=== PATIENT | male | born 1960 | race Caucasian/White ===

== ENCOUNTER 2021-08-30 22:37 | Inpatient (IN) | payer MEDICAID, OTHER ==
[~2021-08-30] VITALS: Ht 180.3 cm; Wt 92.3 kg
[2021-08-30] MEDS ORDERED: IOHEXOL 350 MG/ML 100 ML VIAL ONE (22:53)
[2021-08-30] MEDS ORDERED: SODIUM CHLORIDE 0.9% 100 ML ONE (22:53)
[2021-08-30 23:14] LABS: BASOPHILS % (AUTO) 0.2 % (0.0-2.0); EOSINOPHILS % (AUTO) 0 % (1.0-6.0); HEMATOCRIT 45.5 % (41-53); HEMOGLOBIN 16.2 g/dL (13.5-17.5); LYMPHOCYTES # (AUTO) 0.7 K/uL (1.0-4.8); MEAN CORPUSCULAR HEMOGLOBIN 32.6 pg (26.0-34.0); MEAN CORPUSCULAR HGB CONC 35.6 G/dL (31.0-37.0); MEAN CORPUSCULAR VOLUME 91 fL (80-100); MONOCYTES # (AUTO) 0.9 K/uL (0.1-1.0); MONOCYTES % (AUTO) 5.2 % (2.0-9.0); NEUTROPHILS # (AUTO) 15.3 K/uL (1.8-7.7); PLATELET COUNT (AUTO) 227 K/uL (150-450); RED BLOOD CELL COUNT(AUTO) 4.98 MIL/uL (4.50-5.90); RED CELL DISTRIBUTION WIDTH 12.9 % (11.5-14.5)
[2021-08-30 23:15] LABS: NEUTROPHILS % (AUTO) 90.6 % (40.0-70.0)
[2021-08-30 23:24] LABS: CALCIUM, TOTAL 8.9 mg/dL (8.8-10.5); CREATININE 1.52 mg/dL (0.60-1.30); POTASSIUM 3.6 mmol/L (3.5-5.1)
[2021-08-30 23:25] LABS: INR 1.1 (0.9-1.1); PROTHROMBIN TIME 11.3 SEC (9.4-11.6)
[2021-08-30 23:30] LABS: ALBUMIN 4.1 g/dL (3.4-5.0); BILIRUBIN,TOTAL 1.1 mg/dL (0.1-1.0); TOTAL PROTEIN, SERUM 7.8 g/dL (6.4-8.2)
[2021-08-30] MEDS: NiCARDipine HCL 25 MG in SODIUM CHLORIDE 0.9% 240 ML IV PRN (23:30)
[2021-08-30] MEDS ORDERED: MORPHINE SULFATE 4 MG/ML SYRINGE IVP ONE (23:30)
[2021-08-30 23:56] LABS: COVID AG,FIA SOURCE NASOPHARYNGEAL
[2021-08-31] MEDS ORDERED: ONDANSETRON HCL 4 MG/2 ML VIAL IVP ONE
[2021-08-31 00:01] LABS: APPEARANCE,URINE CLEAR (CLEAR); BILIRUBIN,URINE NEGATIVE (NEGATIVE); GLUCOSE, URINE (UA) NEGATIVE (NEGATIVE); KETONES,URINE TRACE mg/dL (NEGATIVE); LEUKOCYTE ESTERASE ,URINE NEGATIVE (NEGATIVE); NITRATE,URINE NEGATIVE (NEGATIVE); OCCULT BLOOD,URINE MODERATE (NEGATIVE); PROTEIN,URINE POS 1+ (NEGATIVE); UROBILINOGEN,URINE 0.2 mg/dL (<=1.0)
[2021-08-31 00:04] LABS: BACTERIA,URINE Rare /HPF (None Seen); WBC,URINE 0-2 /HPF (0-5)
[2021-08-31 00:05] LABS: AMPHET/METH SCREEN,URINE POSITIVE (NEGATIVE); BARBITURATE SCREEN, URINE NEGATIVE (NEGATIVE); BENZODIAZEPINES SCREEN,URINE NEGATIVE (NEGATIVE); CANNABINOID SCREEN,URINE NEGATIVE (NEGATIVE); COCAINE SCREEN,URINE NEGATIVE (NEGATIVE); METHADONE SCREEN, URINE NEGATIVE (NEGATIVE); OPIATE SCREEN,URINE NEGATIVE (NEGATIVE)
[2021-08-31 00:07] LABS: PHENCYCLIDINE SCREEN,URINE NEGATIVE (NEGATIVE)
[2021-08-31] MEDS ORDERED: 0.9% SODIUM CHLORIDE 10 ML SYRINGE IVP PRN (00:15)
[2021-08-31] MEDS ORDERED: ONDANSETRON HCL 4 MG/2 ML VIAL IVP PRN (00:15)
[2021-08-31] MEDS ORDERED: ACETAMINOPHEN 325 MG TABLET PO PRN (00:15)
[2021-08-31] MEDS ORDERED: FAMOTIDINE 10 MG/ML 2 ML VIAL IVP ONE (00:45)
[2021-08-31] MEDS ORDERED: METOCLOPRAMIDE HCL 5 MG/ML 2 ML VIAL IVP ONE (00:45)
[2021-08-31] MEDS: NiCARDipine HCL 25 MG in SODIUM CHLORIDE 0.9% 240 ML IV PRN (05:43)
[2021-08-31] MEDS ORDERED: BISACODYL 10 MG RECTAL RECTAL SUPPOSITORY PR PRN (06:00)
[2021-08-31] MEDS ORDERED: IPRATROPIUM BROMIDE 0.5 MG/2.5 ML NEB SOLUTION NEB PRN (06:00)
[2021-08-31] MEDS ORDERED: ALBUTEROL SULFATE 2.5 MG/0.5 ML NEB SOLUTION NEB PRN (06:00)
[2021-08-31] MEDS: DOCUSATE SODIUM 100 MG CAPSULE PO SCH ×2 (09:00→21:00)
[2021-08-31] MEDS: PANTOPRAZOLE SODIUM 40 MG/VIAL IVP SCH (10:08)
[2021-08-31] MEDS ORDERED: LORazepam 2 MG/ML VIAL ONE (10:55)
[2021-08-31] MEDS ORDERED: LORazepam 2 MG/ML VIAL IVP ONE (11:00)
[2021-08-31] MEDS ORDERED: HALOPERIDOL LACTATE 5 MG/ML VIAL IVP ONE (11:30)
[2021-08-31 21:06] LABS: BASOPHILS % (AUTO) 0.9 % (0.0-2.0); EOSINOPHILS % (AUTO) 0.5 % (1.0-6.0); HEMATOCRIT 44.2 % (41-53); HEMOGLOBIN 15.6 g/dL (13.5-17.5); LYMPHOCYTES # (AUTO) 1.8 K/uL (1.0-4.8); LYMPHOCYTES % (AUTO) 16.8 % (22.0-44.0); MEAN CORPUSCULAR HEMOGLOBIN 32.6 pg (26.0-34.0); MEAN CORPUSCULAR HGB CONC 35.2 G/dL (31.0-37.0); MEAN CORPUSCULAR VOLUME 93 fL (80-100); MONOCYTES # (AUTO) 0.7 K/uL (0.1-1.0); MONOCYTES % (AUTO) 6.3 % (2.0-9.0); NEUTROPHILS # (AUTO) 8.1 K/uL (1.8-7.7); NEUTROPHILS % (AUTO) 75.5 % (40.0-70.0); RED BLOOD CELL COUNT(AUTO) 4.77 MIL/uL (4.50-5.90); RED CELL DISTRIBUTION WIDTH 13.2 % (11.5-14.5)
[2021-08-31 21:12] LABS: CALCIUM, TOTAL 8.4 mg/dL (8.8-10.5); CREATININE 1.39 mg/dL (0.60-1.30); POTASSIUM 4.1 mmol/L (3.5-5.1)
[2021-08-31 21:18] LABS: BILIRUBIN,TOTAL 1.5 mg/dL (0.1-1.0)
[2021-08-31 21:19] LABS: ALBUMIN 3.8 g/dL (3.4-5.0); TOTAL PROTEIN, SERUM 7.4 g/dL (6.4-8.2)
[2021-08-31 21:33] LABS: PLATELET COUNT (AUTO) 184 K/uL (150-450)
[2021-08-31] MEDS ORDERED: HydrALAZINE HCL 20 MG/ML VIAL IVP PRN (23:30)
[2021-08-31] MEDS: ACETAMINOPHEN 325 MG TABLET PO PRN (23:42)
[2021-09-01 00:55] LABS: GLUCOMETER DEV NAME(LOC) ERT.5; GLUCOSE,POINT OF CARE 83 MG/DL (70-110)
[2021-09-01] MEDS: HydrALAZINE HCL 20 MG/ML VIAL IVP PRN ×3 (04:56→16:44)
[2021-09-01] MEDS: PANTOPRAZOLE SODIUM 40 MG/VIAL IVP SCH (08:39)
[2021-09-01] MEDS: DOCUSATE SODIUM 100 MG CAPSULE PO SCH ×2 (08:40→20:20)
[2021-09-01 10:23] LABS: CHOL/HDL RATIO 2.5 (4.2-7.3)
[2021-09-01] MEDS ORDERED: LORazepam 2 MG/ML VIAL IVP ONE ×2 (10:45→14:00)
[2021-09-01] MEDS ORDERED: LABETALOL HCL 5 MG/ML 20 ML VIAL IVP ONE (16:00)
[2021-09-01] MEDS: NiCARDipine HCL 25 MG in SODIUM CHLORIDE 0.9% 240 ML IV PRN ×3 (17:28→23:12)
[2021-09-02] MEDS: NiCARDipine HCL 25 MG in SODIUM CHLORIDE 0.9% 240 ML IV PRN ×5 (00:42→20:57)
[2021-09-02] MEDS: MORPHINE SULFATE 2 MG/ML SYRINGE IVP PRN ×5 (01:15→19:53)
[2021-09-02] MEDS: HydrALAZINE HCL 20 MG/ML VIAL IVP PRN (06:19)
[2021-09-02] MEDS: ONDANSETRON HCL 4 MG/2 ML VIAL IVP PRN ×3 (07:24→19:53)
[2021-09-02] MEDS: PANTOPRAZOLE SODIUM 40 MG/VIAL IVP SCH (08:25)
[2021-09-02] MEDS: DOCUSATE SODIUM 100 MG CAPSULE PO SCH ×2 (09:00→20:11)
[2021-09-03] MEDS: ACETAMINOPHEN 325 MG TABLET PO PRN (02:23)
[2021-09-03] MEDS: NiCARDipine HCL 25 MG in SODIUM CHLORIDE 0.9% 240 ML IV PRN ×3 (02:26→07:05)
[2021-09-03] MEDS: ONDANSETRON HCL 4 MG/2 ML VIAL IVP PRN (02:57)
[2021-09-03] MEDS: MORPHINE SULFATE 2 MG/ML SYRINGE IVP PRN ×2 (02:57→21:01)
[2021-09-03] MEDS ORDERED: LORazepam 2 MG/ML VIAL IVP ONE (03:15)
[2021-09-03] MEDS ORDERED: HALOPERIDOL LACTATE 5 MG/ML VIAL IVP ONE (03:15)
[2021-09-03] MEDS: DOCUSATE SODIUM 100 MG CAPSULE PO SCH ×2 (09:00→22:46)
[2021-09-03] MEDS: PANTOPRAZOLE SODIUM 40 MG/VIAL IVP SCH (09:16)
[2021-09-03] MEDS ORDERED: NIFEdipine 30 MG ER TABLET PO ONE (15:45)
[2021-09-03] MEDS: HYDROCODONE/ACETAMINOPHEN 5-325 MG TABLET PO PRN (17:46)
[2021-09-03] MEDS: HydrALAZINE HCL 20 MG/ML VIAL IVP PRN (20:52)
[2021-09-03] MEDS ORDERED: LABETALOL HCL 5 MG/ML 20 ML VIAL IVP ONE (21:30)
[2021-09-03 22:29] VITALS: BP 170/92
[2021-09-04] MEDS: MORPHINE SULFATE 2 MG/ML SYRINGE IVP PRN ×5 (02:15→17:04)
[2021-09-04] MEDS: ONDANSETRON HCL 4 MG/2 ML VIAL IVP PRN ×2 (02:20→10:33)
[2021-09-04 05:06] VITALS: BP 202/98
[2021-09-04] MEDS: HydrALAZINE HCL 20 MG/ML VIAL IVP PRN (05:07)
[2021-09-04] MEDS ORDERED: INFLUENZA VIRUS VACCINE QVS 2021-22 (6MO+)/PF 60 MCG/0.5 ML SYRINGE IM. ONE (05:30)
[2021-09-04 05:53] VITALS: BP 171/80
[2021-09-04] MEDS: DOCUSATE SODIUM 100 MG CAPSULE PO SCH ×2 (08:50→21:25)
[2021-09-04] MEDS: NIFEdipine 30 MG ER TABLET PO SCH (08:51)
[2021-09-04] MEDS: PANTOPRAZOLE SODIUM 40 MG/VIAL IVP SCH (10:27)
[2021-09-04 10:55] VITALS: BP 142/86
[2021-09-04 20:50] VITALS: BP 134/80
[2021-09-04] MEDS: ZOLPIDEM TARTRATE 5 MG TABLET PO PRN (21:25)
[2021-09-04] MEDS: MAGNESIUM HYDROXIDE SUSPENSION 30 ML UDCUP PO PRN (21:25)
[2021-09-04] MEDS: HYDROCODONE/ACETAMINOPHEN 5-325 MG TABLET PO PRN (21:28)
[2021-09-05 04:37] VITALS: BP 114/87
[2021-09-05 08:28] VITALS: BP 119/83
[2021-09-05] MEDS: DOCUSATE SODIUM 100 MG CAPSULE PO SCH ×2 (09:00→21:00)
[2021-09-05] MEDS: NIFEdipine 30 MG ER TABLET PO SCH (09:58)
[2021-09-05] MEDS: PANTOPRAZOLE SODIUM 40 MG/VIAL IVP SCH (09:59)
[2021-09-05] MEDS: HYDROCODONE/ACETAMINOPHEN 5-325 MG TABLET PO PRN ×2 (10:50→18:37)
[2021-09-05] MEDS: ZOLPIDEM TARTRATE 5 MG TABLET PO PRN ×2 (10:50→18:37)
[2021-09-05 12:44] VITALS: BP 123/87
[2021-09-05 20:27] VITALS: BP 140/85
[2021-09-05 22:39] LABS: BASOPHILS % (AUTO) 0.2 % (0.0-2.0); EOSINOPHILS % (AUTO) 1.5 % (1.0-6.0); HEMOGLOBIN 13.9 g/dL (13.5-17.5); LYMPHOCYTES # (AUTO) 1.3 K/uL (1.0-4.8); LYMPHOCYTES % (AUTO) 13.3 % (22.0-44.0); MEAN CORPUSCULAR HEMOGLOBIN 33.4 pg (26.0-34.0); MEAN CORPUSCULAR HGB CONC 36.7 G/dL (31.0-37.0); MEAN CORPUSCULAR VOLUME 91 fL (80-100); MONOCYTES # (AUTO) 1.1 K/uL (0.1-1.0); MONOCYTES % (AUTO) 10.6 % (2.0-9.0); NEUTROPHILS # (AUTO) 7.5 K/uL (1.8-7.7); NEUTROPHILS % (AUTO) 74.4 % (40.0-70.0); PLATELET COUNT (AUTO) 201 K/uL (150-450); RED BLOOD CELL COUNT(AUTO) 4.17 MIL/uL (4.50-5.90); RED CELL DISTRIBUTION WIDTH 12.9 % (11.5-14.5)
[2021-09-05] MEDS: MORPHINE SULFATE 2 MG/ML SYRINGE IVP PRN (22:41)
[2021-09-05 22:52] LABS: ANION GAP 4 mmol/L (8-16); CALCIUM, TOTAL 8.1 mg/dL (8.8-10.5); CARBON DIOXIDE 30 mmol/L (22-29); CHLORIDE 101 mmol/L (98-107); CREATININE 0.82 mg/dL (0.60-1.30); GLOMERULAR FILTR. RATE CALC > 60 mL/min (>60); GLUCOSE,RANDOM 95 mg/dL (70-110); POTASSIUM 3.5 mmol/L (3.5-5.1); SODIUM SERUM 135 mmol/L (136-145); UREA NITROGEN, BLOOD 22 mg/dL (7-18)
[2021-09-05 22:58] LABS: ALANINE AMINOTRANSFERASE 102 U/L (12-78); ALBUMIN 3.1 g/dL (3.4-5.0); ALKALINE PHOSPHATASE 133 U/L (46-116); ASPARTATE AMINOTRANSFERASE 101 U/L (15-37); TOTAL PROTEIN, SERUM 6.4 g/dL (6.4-8.2)
[2021-09-05 23:28] VITALS: BP 142/75
[2021-09-06] MEDS: HYDROCODONE/ACETAMINOPHEN 5-325 MG TABLET PO PRN (00:43)
[2021-09-06 04:48] VITALS: BP 144/72
[2021-09-06 08:26] VITALS: BP 150/91
[2021-09-06] MEDS: DOCUSATE SODIUM 100 MG CAPSULE PO SCH ×2 (08:51→20:34)
[2021-09-06] MEDS: MORPHINE SULFATE 2 MG/ML SYRINGE IVP PRN (09:01)
[2021-09-06] MEDS: PANTOPRAZOLE SODIUM 40 MG/VIAL IVP SCH (09:05)
[2021-09-06] MEDS: NIFEdipine 30 MG ER TABLET PO SCH (09:05)
[2021-09-06 12:36] VITALS: BP 155/72
[2021-09-06 15:01] VITALS: BP 145/75
[2021-09-06] MEDS: ACETAMINOPHEN 325 MG TABLET PO PRN ×2 (16:29→20:34)
[2021-09-06 18:03] VITALS: BP 160/78
[2021-09-06 19:28] VITALS: BP 156/96
[2021-09-07] MEDS: ZOLPIDEM TARTRATE 5 MG TABLET PO PRN (01:03)
[2021-09-07 04:15] VITALS: BP 173/102
[2021-09-07] MEDS: NIFEdipine 30 MG ER TABLET PO SCH (04:44)
[2021-09-07] MEDS: ACETAMINOPHEN 325 MG TABLET PO PRN (04:44)
[2021-09-07 05:04] VITALS: BP 177/101
[2021-09-07] MEDS: MORPHINE SULFATE 2 MG/ML SYRINGE IVP PRN (05:18)
[2021-09-07] MEDS ORDERED: NIFEdipine 30 MG ER TABLET PO ONE (05:45)
[2021-09-07] MEDS: CloNIDine HCL 0.1 MG TABLET PO PRN (06:17)
[2021-09-07 06:18] VITALS: BP 178/83
[2021-09-07 08:19] VITALS: BP 159/81
[2021-09-07] MEDS: NIFEdipine 60 MG ER TABLET PO SCH (09:07)
[2021-09-07] MEDS: DOCUSATE SODIUM 100 MG CAPSULE PO SCH ×2 (09:07→20:04)
[2021-09-07] MEDS: PANTOPRAZOLE SODIUM 40 MG/VIAL IVP SCH (09:07)
[2021-09-07] MEDS: HYDROCODONE/ACETAMINOPHEN 5-325 MG TABLET PO PRN ×2 (09:08→20:04)
[2021-09-07 16:13] VITALS: BP 155/86
[2021-09-07 20:10] VITALS: BP 115/71
[2021-09-08] MEDS: HYDROCODONE/ACETAMINOPHEN 5-325 MG TABLET PO PRN ×5 (03:03→23:41)
[2021-09-08] MEDS: CloNIDine HCL 0.1 MG TABLET PO PRN (03:13)
[2021-09-08 03:17] VITALS: BP 157/93
[2021-09-08 08:46] VITALS: BP 150/98
[2021-09-08] MEDS: NIFEdipine 60 MG ER TABLET PO SCH (08:47)
[2021-09-08] MEDS: PANTOPRAZOLE SODIUM 40 MG/VIAL IVP SCH (08:47)
[2021-09-08] MEDS: DOCUSATE SODIUM 100 MG CAPSULE PO SCH ×2 (08:47→20:26)
[2021-09-08 12:07] VITALS: BP 132/82
[2021-09-08 16:20] VITALS: BP 149/83
[2021-09-08] MEDS: ZOLPIDEM TARTRATE 5 MG TABLET PO PRN (20:33)
[2021-09-08] MEDS: ACETAMINOPHEN 325 MG TABLET PO PRN (20:34)
[2021-09-08 20:43] VITALS: BP 152/82
[2021-09-08 23:48] VITALS: BP 148/80
[2021-09-09] MEDS: HYDROCODONE/ACETAMINOPHEN 5-325 MG TABLET PO PRN ×4 (04:19→20:41)
[2021-09-09 04:49] VITALS: BP 146/85
[2021-09-09] MEDS: PANTOPRAZOLE SODIUM 40 MG/VIAL IVP SCH (08:27)
[2021-09-09] MEDS: DOCUSATE SODIUM 100 MG CAPSULE PO SCH ×2 (08:27→20:41)
[2021-09-09] MEDS: NIFEdipine 60 MG ER TABLET PO SCH (08:27)
[2021-09-09 08:42] VITALS: BP_SYST 144; BP_DIAS 9; BP_DIAS 97
[2021-09-09] MEDS: QUEtiapine FUMARATE 25 MG TABLET PO SCH ×2 (11:15→20:41)
[2021-09-09 16:27] VITALS: BP 159/75
[2021-09-09 19:32] VITALS: BP 140/62
[2021-09-10] MEDS: HYDROCODONE/ACETAMINOPHEN 5-325 MG TABLET PO PRN ×3 (03:16→15:47)
[2021-09-10 03:19] VITALS: BP 157/84
[2021-09-10] MEDS: CloNIDine HCL 0.1 MG TABLET PO PRN (03:32)
[2021-09-10 08:14] VITALS: BP 147/61
[2021-09-10] MEDS: DOCUSATE SODIUM 100 MG CAPSULE PO SCH ×2 (08:42→23:36)
[2021-09-10] MEDS: MAGNESIUM HYDROXIDE SUSPENSION 30 ML UDCUP PO PRN (08:42)
[2021-09-10] MEDS: NIFEdipine 60 MG ER TABLET PO SCH (08:42)
[2021-09-10] MEDS: QUEtiapine FUMARATE 25 MG TABLET PO SCH ×3 (08:43→23:36)
[2021-09-10 17:25] VITALS: BP 149/82
[2021-09-10 19:20] VITALS: BP 146/64
[2021-09-11] MEDS: HYDROCODONE/ACETAMINOPHEN 5-325 MG TABLET PO PRN (04:05)
[2021-09-11 04:15] VITALS: BP 150/60
[2021-09-11] MEDS: DOCUSATE SODIUM 100 MG CAPSULE PO SCH ×2 (09:25→20:18)
[2021-09-11] MEDS: NIFEdipine 60 MG ER TABLET PO SCH (09:25)
[2021-09-11] MEDS: QUEtiapine FUMARATE 25 MG TABLET PO SCH ×2 (09:29→20:19)
[2021-09-11] MEDS ORDERED: LORazepam 2 MG/ML VIAL ONE (09:43)
[2021-09-11] MEDS ORDERED: LORazepam 2 MG/ML VIAL IM ONE (09:45)
[2021-09-11 19:30] VITALS: BP 149/81
[2021-09-11] MEDS: TEMAZEPAM 15 MG CAPSULE PO PRN (20:18)
[2021-09-12] MEDS: HYDROCODONE/ACETAMINOPHEN 5-325 MG TABLET PO PRN ×3 (01:48→20:38)
[2021-09-12 08:15] VITALS: BP 143/79
[2021-09-12] MEDS: DOCUSATE SODIUM 100 MG CAPSULE PO SCH ×2 (08:31→20:36)
[2021-09-12] MEDS: NIFEdipine 60 MG ER TABLET PO SCH (08:31)
[2021-09-12] MEDS: QUEtiapine FUMARATE 25 MG TABLET PO SCH ×2 (08:31→20:39)
[2021-09-12 20:25] VITALS: BP 145/76
[2021-09-13] MEDS: HYDROCODONE/ACETAMINOPHEN 5-325 MG TABLET PO PRN ×3 (06:02→21:10)
[2021-09-13 08:00] VITALS: BP 124/65
[2021-09-13] MEDS: NIFEdipine 60 MG ER TABLET PO SCH (08:29)
[2021-09-13] MEDS: QUEtiapine FUMARATE 25 MG TABLET PO SCH ×2 (08:29→21:10)
[2021-09-13] MEDS: DOCUSATE SODIUM 100 MG CAPSULE PO SCH ×2 (08:29→21:10)
[2021-09-13 15:00] VITALS: BP 112/58
[2021-09-13 19:46] VITALS: BP 148/72
[2021-09-13] MEDS: TEMAZEPAM 15 MG CAPSULE PO PRN (21:10)
[2021-09-14 04:47] VITALS: BP 142/65
[2021-09-14] MEDS: HYDROCODONE/ACETAMINOPHEN 5-325 MG TABLET PO PRN ×2 (06:38→19:54)
[2021-09-14 08:00] VITALS: BP 141/67
[2021-09-14] MEDS: NIFEdipine 60 MG ER TABLET PO SCH (10:25)
[2021-09-14] MEDS: DOCUSATE SODIUM 100 MG CAPSULE PO SCH ×2 (10:25→19:53)
[2021-09-14] MEDS: QUEtiapine FUMARATE 25 MG TABLET PO SCH ×2 (10:25→19:54)
[2021-09-14 12:14] VITALS: BP 142/72
[2021-09-14 15:21] VITALS: BP 143/66
[2021-09-14 19:39] VITALS: BP 138/76
[2021-09-14] MEDS: TEMAZEPAM 15 MG CAPSULE PO PRN (19:53)
[2021-09-15] MEDS: HYDROCODONE/ACETAMINOPHEN 5-325 MG TABLET PO PRN (02:15)
[2021-09-15] MEDS ORDERED: LORazepam 2 MG/ML VIAL IM ONE (02:45)
[2021-09-15] MEDS ORDERED: HALOPERIDOL LACTATE 5 MG/ML VIAL IM ONE (02:45)
[2021-09-15 04:05] VITALS: BP 132/72
[2021-09-15 07:52] VITALS: BP 138/77
[2021-09-15] MEDS: QUEtiapine FUMARATE 25 MG TABLET PO SCH ×3 (08:41→21:00)
[2021-09-15] MEDS: DOCUSATE SODIUM 100 MG CAPSULE PO SCH ×3 (08:41→21:00)
[2021-09-15] MEDS: NIFEdipine 60 MG ER TABLET PO SCH (08:41)
[2021-09-15 16:35] VITALS: BP 137/78
[2021-09-15 19:00] VITALS: BP 130/84
[2021-09-15 23:00] VITALS: BP 144/79
[2021-09-16] MEDS: TEMAZEPAM 15 MG CAPSULE PO PRN ×2 (01:03→20:33)
[2021-09-16 04:00] VITALS: BP 120/80
[2021-09-16 07:31] VITALS: BP 141/69
[2021-09-16] MEDS: QUEtiapine FUMARATE 25 MG TABLET PO SCH ×2 (08:43→20:31)
[2021-09-16] MEDS: NIFEdipine 60 MG ER TABLET PO SCH (08:43)
[2021-09-16] MEDS: DOCUSATE SODIUM 100 MG CAPSULE PO SCH ×2 (08:43→20:31)
[2021-09-16] MEDS ORDERED: DiphenhydrAMINE HCL 50 MG/ML VIAL ONE (11:49)
[2021-09-16] MEDS ORDERED: HALOPERIDOL LACTATE 5 MG/ML VIAL ONE (11:49)
[2021-09-16] MEDS: LORazepam 2 MG/ML VIAL IM PRN (12:21)
[2021-09-16] MEDS: DiphenhydrAMINE HCL 50 MG/ML VIAL IM PRN (12:21)
[2021-09-16] MEDS: HALOPERIDOL LACTATE 5 MG/ML VIAL IM PRN (12:22)
[2021-09-16 19:44] VITALS: BP 141/79
[2021-09-17 04:47] VITALS: BP 134/67
[2021-09-17 07:39] VITALS: BP 132/80
[2021-09-17] MEDS: DOCUSATE SODIUM 100 MG CAPSULE PO SCH ×2 (09:00→20:18)
[2021-09-17] MEDS: QUEtiapine FUMARATE 25 MG TABLET PO SCH ×2 (09:00→20:18)
[2021-09-17] MEDS: NIFEdipine 60 MG ER TABLET PO SCH (09:00)
[2021-09-17] MEDS: DiphenhydrAMINE HCL 50 MG/ML VIAL IM PRN (17:30)
[2021-09-17] MEDS: LORazepam 2 MG/ML VIAL IM PRN (17:30)
[2021-09-17] MEDS: HALOPERIDOL LACTATE 5 MG/ML VIAL IM PRN (17:31)
[2021-09-18] MEDS: HALOPERIDOL LACTATE 5 MG/ML VIAL IM PRN ×2 (02:01→19:20)
[2021-09-18] MEDS: LORazepam 2 MG/ML VIAL IM PRN ×2 (02:01→19:18)
[2021-09-18] MEDS: DiphenhydrAMINE HCL 50 MG/ML VIAL IM PRN ×2 (02:01→19:19)
[2021-09-18 08:00] VITALS: BP 165/84
[2021-09-18] MEDS: DOCUSATE SODIUM 100 MG CAPSULE PO SCH ×2 (09:00→21:00)
[2021-09-18] MEDS: QUEtiapine FUMARATE 25 MG TABLET PO SCH ×2 (09:00→21:00)
[2021-09-18] MEDS: NIFEdipine 60 MG ER TABLET PO SCH (09:00)
[2021-09-18 13:12] VITALS: BP 164/89
[2021-09-18 16:00] VITALS: BP 147/79
[2021-09-18 20:00] VITALS: BP 130/96
[2021-09-19] VITALS (7 sets, daily range): BP systolic 128–157; BP diastolic 82–99
[2021-09-19] MEDS: HYDROCODONE/ACETAMINOPHEN 5-325 MG TABLET PO PRN ×2 (05:51→20:52)
[2021-09-19] MEDS: QUEtiapine FUMARATE 25 MG TABLET PO SCH ×2 (09:00→20:52)
[2021-09-19] MEDS: NIFEdipine 60 MG ER TABLET PO SCH (09:00)
[2021-09-19] MEDS: DOCUSATE SODIUM 100 MG CAPSULE PO SCH ×2 (09:00→20:52)
[2021-09-20 01:58] VITALS: BP 136/89
[2021-09-20 04:28] VITALS: BP 132/91
[2021-09-20 07:41] VITALS: BP 157/97
[2021-09-20] MEDS: DOCUSATE SODIUM 100 MG CAPSULE PO SCH ×2 (08:35→19:51)
[2021-09-20] MEDS: ACETAMINOPHEN 325 MG TABLET PO PRN ×2 (08:35→18:48)
[2021-09-20] MEDS: NIFEdipine 60 MG ER TABLET PO SCH (08:35)
[2021-09-20] MEDS: QUEtiapine FUMARATE 25 MG TABLET PO SCH ×4 (08:36→20:39)
[2021-09-20 15:29] VITALS: BP 134/88
[2021-09-20 19:35] VITALS: BP 161/98
[2021-09-20] MEDS: DiphenhydrAMINE HCL 50 MG/ML VIAL IM PRN (20:28)
[2021-09-20] MEDS: HydrALAZINE HCL 20 MG/ML VIAL IVP PRN (20:29)
[2021-09-20 23:50] VITALS: BP 159/78
[2021-09-21] MEDS ORDERED: SODIUM CHLORIDE 0.9% 250 ML IV ONE (02:18)
[2021-09-21 02:31] VITALS: BP 159/58
[2021-09-21] MEDS: HYDROCODONE/ACETAMINOPHEN 5-325 MG TABLET PO PRN ×2 (02:37→09:30)
[2021-09-21] MEDS: MAGNESIUM HYDROXIDE SUSPENSION 30 ML UDCUP PO PRN (05:51)
[2021-09-21] MEDS: DOCUSATE SODIUM 100 MG CAPSULE PO SCH ×2 (09:00→21:00)
[2021-09-21 09:11] VITALS: BP 161/91
[2021-09-21] MEDS: NIFEdipine 60 MG ER TABLET PO SCH (09:30)
[2021-09-21] MEDS: QUEtiapine FUMARATE 25 MG TABLET PO SCH ×2 (09:32→21:00)
[2021-09-21] MEDS: HALOPERIDOL LACTATE 5 MG/ML VIAL IM PRN (10:54)
[2021-09-21] MEDS: DiphenhydrAMINE HCL 50 MG/ML VIAL IM PRN (10:55)
[2021-09-21] MEDS: LORazepam 2 MG/ML VIAL IM PRN (10:55)
[2021-09-21 11:20] VITALS: BP 139/91
[2021-09-21 15:07] VITALS: BP 133/82
[2021-09-21 20:16] VITALS: BP 115/79
[2021-09-22] MEDS: HYDROCODONE/ACETAMINOPHEN 5-325 MG TABLET PO PRN (00:19)
[2021-09-22 05:39] VITALS: BP 138/72
[2021-09-22 08:04] VITALS: BP 143/71
[2021-09-22] MEDS: NIFEdipine 60 MG ER TABLET PO SCH (09:00)
[2021-09-22] MEDS: QUEtiapine FUMARATE 25 MG TABLET PO SCH ×2 (09:00→21:00)
[2021-09-22] MEDS: DOCUSATE SODIUM 100 MG CAPSULE PO SCH ×2 (09:00→21:00)
[2021-09-22 15:34] VITALS: BP 132/93
[2021-09-22 19:40] VITALS: BP 135/88
[2021-09-23] MEDS: HYDROCODONE/ACETAMINOPHEN 5-325 MG TABLET PO PRN (01:41)
[2021-09-23] MEDS: LORazepam 2 MG/ML VIAL IM PRN ×2 (03:13→23:27)
[2021-09-23 05:10] VITALS: BP 143/88
[2021-09-23] MEDS: NIFEdipine 60 MG ER TABLET PO SCH (07:57)
[2021-09-23] MEDS: QUEtiapine FUMARATE 25 MG TABLET PO SCH ×2 (07:57→21:00)
[2021-09-23] MEDS: DOCUSATE SODIUM 100 MG CAPSULE PO SCH ×2 (07:58→21:00)
[2021-09-23 08:03] VITALS: BP 140/94
[2021-09-23 15:00] VITALS: BP 134/82
[2021-09-23 20:12] VITALS: BP 124/73
[2021-09-24] MEDS: QUEtiapine FUMARATE 25 MG TABLET PO SCH ×2 (07:39→21:07)
[2021-09-24] MEDS: DOCUSATE SODIUM 100 MG CAPSULE PO SCH ×2 (07:39→21:07)
[2021-09-24] MEDS: NIFEdipine 60 MG ER TABLET PO SCH (07:39)
[2021-09-24 07:42] VITALS: BP 136/84
[2021-09-24] MEDS: DiphenhydrAMINE HCL 50 MG/ML VIAL IM PRN ×2 (09:20→21:34)
[2021-09-24] MEDS: LORazepam 2 MG/ML VIAL IM PRN ×2 (09:20→21:34)
[2021-09-24] MEDS: HALOPERIDOL LACTATE 5 MG/ML VIAL IM PRN ×2 (09:20→21:35)
[2021-09-24] MEDS: HYDROCODONE/ACETAMINOPHEN 5-325 MG TABLET PO PRN (21:07)
[2021-09-24] MEDS: QUEtiapine FUMARATE 100 MG TABLET PO SCH (21:07)
[2021-09-25] MEDS: DOCUSATE SODIUM 100 MG CAPSULE PO SCH ×2 (09:51→21:27)
[2021-09-25] MEDS: QUEtiapine FUMARATE 25 MG TABLET PO SCH ×2 (09:51→21:27)
[2021-09-25] MEDS: NIFEdipine 60 MG ER TABLET PO SCH (09:51)
[2021-09-25] MEDS: DiphenhydrAMINE HCL 50 MG/ML VIAL IM PRN ×2 (10:14→21:29)
[2021-09-25] MEDS: LORazepam 2 MG/ML VIAL IM PRN ×2 (10:15→21:28)
[2021-09-25] MEDS: HALOPERIDOL LACTATE 5 MG/ML VIAL IM PRN ×2 (10:16→21:29)
[2021-09-25 20:30] VITALS: BP 147/93
[2021-09-25] MEDS: HYDROCODONE/ACETAMINOPHEN 5-325 MG TABLET PO PRN (21:27)
[2021-09-25] MEDS: QUEtiapine FUMARATE 100 MG TABLET PO SCH (21:28)
[2021-09-26] MEDS: NIFEdipine 60 MG ER TABLET PO SCH (09:00)
[2021-09-26] MEDS: QUEtiapine FUMARATE 25 MG TABLET PO SCH ×2 (09:00→21:18)
[2021-09-26] MEDS: DOCUSATE SODIUM 100 MG CAPSULE PO SCH ×2 (09:00→21:17)
[2021-09-26] MEDS: LORazepam 2 MG/ML VIAL IM PRN (17:55)
[2021-09-26] MEDS: DiphenhydrAMINE HCL 50 MG/ML VIAL IM PRN (17:57)
[2021-09-26] MEDS: HALOPERIDOL LACTATE 5 MG/ML VIAL IM PRN (17:57)
[2021-09-26 21:12] VITALS: BP 163/95
[2021-09-26] MEDS: HYDROCODONE/ACETAMINOPHEN 5-325 MG TABLET PO PRN (21:17)
[2021-09-26] MEDS: QUEtiapine FUMARATE 100 MG TABLET PO SCH (21:18)
[2021-09-26] MEDS: CloNIDine HCL 0.1 MG TABLET PO PRN (21:18)
[2021-09-27 05:37] VITALS: BP 147/92
[2021-09-27 08:08] VITALS: BP 141/92
[2021-09-27] MEDS: DOCUSATE SODIUM 100 MG CAPSULE PO SCH ×2 (09:00→20:36)
[2021-09-27] MEDS: NIFEdipine 60 MG ER TABLET PO SCH (09:57)
[2021-09-27] MEDS: QUEtiapine FUMARATE 25 MG TABLET PO SCH ×2 (09:57→20:36)
[2021-09-27] MEDS: HALOPERIDOL LACTATE 5 MG/ML VIAL IM PRN (11:27)
[2021-09-27] MEDS: LORazepam 2 MG/ML VIAL IM PRN (11:27)
[2021-09-27] MEDS: DiphenhydrAMINE HCL 50 MG/ML VIAL IM PRN (11:27)
[2021-09-27 20:23] VITALS: BP 138/79
[2021-09-27] MEDS: QUEtiapine FUMARATE 100 MG TABLET PO SCH (20:36)
[2021-09-27] MEDS: TEMAZEPAM 15 MG CAPSULE PO PRN (20:36)
[2021-09-28] MEDS: DiphenhydrAMINE HCL 50 MG/ML VIAL IM PRN (01:31)
[2021-09-28] MEDS: LORazepam 2 MG/ML VIAL IM PRN (01:31)
[2021-09-28] MEDS: HALOPERIDOL LACTATE 5 MG/ML VIAL IM PRN (01:31)
[2021-09-28 05:21] VITALS: BP 133/71
[2021-09-28 08:36] VITALS: BP 154/91
[2021-09-28] MEDS: DOCUSATE SODIUM 100 MG CAPSULE PO SCH ×2 (09:00→19:56)
[2021-09-28] MEDS: NIFEdipine 60 MG ER TABLET PO SCH (09:01)
[2021-09-28] MEDS: QUEtiapine FUMARATE 25 MG TABLET PO SCH ×2 (09:01→19:56)
[2021-09-28 09:06] LABS: BASOPHILS % (AUTO) 0.3 % (0.0-2.0); EOSINOPHILS % (AUTO) 1.2 % (1.0-6.0); HEMATOCRIT 40.2 % (41-53); HEMOGLOBIN 14.3 g/dL (13.5-17.5); LYMPHOCYTES # (AUTO) 1.5 K/uL (1.0-4.8); MEAN CORPUSCULAR HEMOGLOBIN 32.2 pg (26.0-34.0); MEAN CORPUSCULAR HGB CONC 35.5 G/dL (31.0-37.0); MEAN CORPUSCULAR VOLUME 91 fL (80-100); MONOCYTES # (AUTO) 0.8 K/uL (0.1-1.0); MONOCYTES % (AUTO) 10.6 % (2.0-9.0); NEUTROPHILS # (AUTO) 5.2 K/uL (1.8-7.7); NEUTROPHILS % (AUTO) 67.9 % (40.0-70.0); PLATELET COUNT (AUTO) 276 K/uL (150-450); RED BLOOD CELL COUNT(AUTO) 4.43 MIL/uL (4.50-5.90); RED CELL DISTRIBUTION WIDTH 12.6 % (11.5-14.5)
[2021-09-28 09:13] LABS: ALANINE AMINOTRANSFERASE 96 U/L (12-78); ALBUMIN 3.6 g/dL (3.4-5.0); ALKALINE PHOSPHATASE 83 U/L (46-116); ANION GAP 8 mmol/L (8-16); ASPARTATE AMINOTRANSFERASE 94 U/L (15-37); BILIRUBIN,TOTAL 1.1 mg/dL (0.1-1.0); CALCIUM, TOTAL 9.4 mg/dL (8.8-10.5); CARBON DIOXIDE 31 mmol/L (22-29); CHLORIDE 106 mmol/L (98-107); CREATININE 1.06 mg/dL (0.60-1.30); GLOMERULAR FILTR. RATE CALC > 60 mL/min (>60); GLUCOSE,RANDOM 100 mg/dL (70-110); POTASSIUM 3.8 mmol/L (3.5-5.1); SODIUM SERUM 145 mmol/L (136-145); TOTAL PROTEIN, SERUM 7.7 g/dL (6.4-8.2); UREA NITROGEN, BLOOD 19 mg/dL (7-18)
[2021-09-28] MEDS: LISINOPRIL 10 MG TABLET PO SCH (13:29)
[2021-09-28 16:00] VITALS: BP 132/85
[2021-09-28 19:35] VITALS: BP 125/79
[2021-09-28] MEDS: QUEtiapine FUMARATE 100 MG TABLET PO SCH (19:56)
[2021-09-29] MEDS: HYDROCODONE/ACETAMINOPHEN 5-325 MG TABLET PO PRN ×2 (00:47→23:15)
[2021-09-29 04:10] VITALS: BP 140/77
[2021-09-29] MEDS: DOCUSATE SODIUM 100 MG CAPSULE PO SCH ×2 (09:28→20:53)
[2021-09-29] MEDS: NIFEdipine 60 MG ER TABLET PO SCH (09:28)
[2021-09-29] MEDS: LISINOPRIL 10 MG TABLET PO SCH (09:28)
[2021-09-29] MEDS: QUEtiapine FUMARATE 25 MG TABLET PO SCH ×2 (09:28→21:00)
[2021-09-29 09:51] VITALS: BP 114/61
[2021-09-29 15:36] VITALS: BP 114/60
[2021-09-29 19:30] VITALS: BP 140/84
[2021-09-29] MEDS: TEMAZEPAM 15 MG CAPSULE PO PRN (20:49)
[2021-09-29] MEDS: QUEtiapine FUMARATE 100 MG TABLET PO SCH (20:53)
[2021-09-29] MEDS: ONDANSETRON HCL 4 MG TABLET PO PRN (22:35)
[2021-09-30] VITALS (7 sets, daily range): BP systolic 130–178; BP diastolic 60–103
[2021-09-30] MEDS ORDERED: ONDANSETRON HCL 4 MG/2 ML VIAL PO PRN
[2021-09-30] MEDS: HYDROCODONE/ACETAMINOPHEN 5-325 MG TABLET PO PRN ×2 (06:07→13:07)
[2021-09-30] MEDS: ONDANSETRON HCL 4 MG TABLET PO PRN (06:07)
[2021-09-30] MEDS: NIFEdipine 60 MG ER TABLET PO SCH (08:10)
[2021-09-30] MEDS: QUEtiapine FUMARATE 25 MG TABLET PO SCH ×2 (08:10→21:00)
[2021-09-30] MEDS: LISINOPRIL 10 MG TABLET PO SCH (08:10)
[2021-09-30] MEDS: DOCUSATE SODIUM 100 MG CAPSULE PO SCH ×2 (08:10→21:00)
[2021-09-30] MEDS ORDERED: CloNIDine HCL 0.1 MG TABLET PO ONE (12:45)
[2021-09-30] MEDS: QUEtiapine FUMARATE 100 MG TABLET PO SCH (21:00)
[2021-09-30] MEDS: CALCIUM CARBONATE 500 MG CHEWABLE TABLET CHEW PRN (23:12)
[2021-10-01] VITALS (21 sets, daily range): BP systolic 92–175; BP diastolic 53–108
[2021-10-01] MEDS: HYDROCODONE/ACETAMINOPHEN 5-325 MG TABLET PO PRN ×2 (00:30→12:59)
[2021-10-01] MEDS: TEMAZEPAM 15 MG CAPSULE PO PRN ×2 (03:27→20:34)
[2021-10-01] MEDS: CALCIUM CARBONATE 500 MG CHEWABLE TABLET CHEW PRN ×3 (04:23→20:37)
[2021-10-01] MEDS ORDERED: ACETAMINOPHEN 500 MG TABLET PO ONE (05:45)
[2021-10-01] MEDS: LABETALOL HCL 200 MG TABLET PO SCH ×2 (06:09→21:00)
[2021-10-01] MEDS: DOCUSATE SODIUM 100 MG CAPSULE PO SCH ×2 (08:02→20:34)
[2021-10-01] MEDS: NIFEdipine 60 MG ER TABLET PO SCH (08:02)
[2021-10-01] MEDS: QUEtiapine FUMARATE 25 MG TABLET PO SCH ×2 (08:02→20:34)
[2021-10-01] MEDS: LISINOPRIL 10 MG TABLET PO SCH (08:02)
[2021-10-01] MEDS: QUEtiapine FUMARATE 100 MG TABLET PO SCH (20:34)
[2021-10-02 04:16] VITALS: BP 111/91
[2021-10-02] MEDS: LORazepam 2 MG/ML VIAL IM PRN (05:08)
[2021-10-02] MEDS: DiphenhydrAMINE HCL 50 MG/ML VIAL IM PRN (05:08)
[2021-10-02] MEDS: HALOPERIDOL LACTATE 5 MG/ML VIAL IM PRN (05:08)
[2021-10-02 08:44] VITALS: BP 135/81
[2021-10-02] MEDS: DOCUSATE SODIUM 100 MG CAPSULE PO SCH ×2 (10:17→21:14)
[2021-10-02] MEDS: NIFEdipine 60 MG ER TABLET PO SCH (10:17)
[2021-10-02] MEDS: LABETALOL HCL 200 MG TABLET PO SCH ×2 (10:17→21:14)
[2021-10-02] MEDS: LISINOPRIL 10 MG TABLET PO SCH (10:17)
[2021-10-02] MEDS: HYDROCODONE/ACETAMINOPHEN 5-325 MG TABLET PO PRN (10:17)
[2021-10-02] MEDS: QUEtiapine FUMARATE 25 MG TABLET PO SCH ×2 (10:21→21:14)
[2021-10-02 14:48] VITALS: BP 132/75
[2021-10-02 19:59] VITALS: BP 132/75
[2021-10-02] MEDS: QUEtiapine FUMARATE 100 MG TABLET PO SCH (21:14)
[2021-10-02] MEDS ORDERED: ChlorproMAZINE HCL 50 MG/2 ML AMP IM ONE (23:45)
[2021-10-03] MEDS: LORazepam 2 MG/ML VIAL IM PRN ×2 (02:22→18:15)
[2021-10-03] MEDS: DiphenhydrAMINE HCL 50 MG/ML VIAL IM PRN ×2 (02:23→18:15)
[2021-10-03] MEDS: HALOPERIDOL LACTATE 5 MG/ML VIAL IM PRN (02:27)
[2021-10-03 03:12] VITALS: BP 112/60
[2021-10-03 07:43] VITALS: BP 121/60
[2021-10-03] MEDS: DOCUSATE SODIUM 100 MG CAPSULE PO SCH ×3 (09:00→21:00)
[2021-10-03] MEDS: QUEtiapine FUMARATE 25 MG TABLET PO SCH ×3 (09:00→21:00)
[2021-10-03] MEDS: LISINOPRIL 10 MG TABLET PO SCH ×2 (09:00→09:59)
[2021-10-03] MEDS: NIFEdipine 60 MG ER TABLET PO SCH ×2 (09:00→09:59)
[2021-10-03] MEDS: LABETALOL HCL 200 MG TABLET PO SCH ×2 (09:00→21:00)
[2021-10-03] MEDS: MAGNESIUM HYDROXIDE SUSPENSION 30 ML UDCUP PO PRN (09:59)
[2021-10-03 16:41] VITALS: BP 127/71
[2021-10-03 19:47] VITALS: BP 117/65
[2021-10-03] MEDS: QUEtiapine FUMARATE 100 MG TABLET PO SCH (21:00)
[2021-10-04 04:52] VITALS: BP 158/89
[2021-10-04] MEDS: LORazepam 2 MG/ML VIAL IM PRN (05:30)
[2021-10-04] MEDS: DiphenhydrAMINE HCL 50 MG/ML VIAL IM PRN (05:31)
[2021-10-04] MEDS: HALOPERIDOL LACTATE 5 MG/ML VIAL IM PRN (05:34)
[2021-10-04 08:47] VITALS: BP 173/92
[2021-10-04] MEDS: LABETALOL HCL 200 MG TABLET PO SCH ×2 (09:00→21:00)
[2021-10-04] MEDS: NIFEdipine 60 MG ER TABLET PO SCH (09:00)
[2021-10-04] MEDS: DOCUSATE SODIUM 100 MG CAPSULE PO SCH ×2 (09:00→20:27)
[2021-10-04] MEDS: LISINOPRIL 10 MG TABLET PO SCH (09:00)
[2021-10-04] MEDS: QUEtiapine FUMARATE 25 MG TABLET PO SCH ×2 (09:00→20:28)
[2021-10-04 16:21] VITALS: BP 105/42
[2021-10-04 20:25] VITALS: BP 157/95
[2021-10-04] MEDS: QUEtiapine FUMARATE 100 MG TABLET PO SCH (20:28)
[2021-10-05 04:36] VITALS: BP 141/99
[2021-10-05 08:00] VITALS: BP 145/93
[2021-10-05] MEDS: QUEtiapine FUMARATE 25 MG TABLET PO SCH ×2 (09:00→19:49)
[2021-10-05] MEDS: LABETALOL HCL 200 MG TABLET PO SCH ×2 (09:00→19:49)
[2021-10-05] MEDS: LISINOPRIL 10 MG TABLET PO SCH (09:00)
[2021-10-05] MEDS: DOCUSATE SODIUM 100 MG CAPSULE PO SCH ×2 (09:00→19:59)
[2021-10-05] MEDS: NIFEdipine 60 MG ER TABLET PO SCH (09:00)
[2021-10-05 15:23] VITALS: BP 151/92
[2021-10-05 16:23] LABS: BASOPHILS % (AUTO) 0.6 % (0.0-2.0); EOSINOPHILS % (AUTO) 0.7 % (1.0-6.0); HEMATOCRIT 37.9 % (41-53); HEMOGLOBIN 13.5 g/dL (13.5-17.5); LYMPHOCYTES # (AUTO) 1.2 K/uL (1.0-4.8); LYMPHOCYTES % (AUTO) 10.6 % (22.0-44.0); MEAN CORPUSCULAR HEMOGLOBIN 31.8 pg (26.0-34.0); MEAN CORPUSCULAR HGB CONC 35.6 G/dL (31.0-37.0); MEAN CORPUSCULAR VOLUME 89 fL (80-100); MONOCYTES # (AUTO) 1.3 K/uL (0.1-1.0); MONOCYTES % (AUTO) 10.8 % (2.0-9.0); NEUTROPHILS # (AUTO) 8.9 K/uL (1.8-7.7); NEUTROPHILS % (AUTO) 77.3 % (40.0-70.0); PLATELET COUNT (AUTO) 273 K/uL (150-450); RED BLOOD CELL COUNT(AUTO) 4.25 MIL/uL (4.50-5.90); RED CELL DISTRIBUTION WIDTH 12.5 % (11.5-14.5)
[2021-10-05 16:31] LABS: ANION GAP 11 mmol/L (8-16); CALCIUM, TOTAL 8.5 mg/dL (8.8-10.5); CARBON DIOXIDE 25 mmol/L (22-29); CHLORIDE 103 mmol/L (98-107); CREATININE 0.99 mg/dL (0.60-1.30); GLOMERULAR FILTR. RATE CALC > 60 mL/min (>60); GLUCOSE,RANDOM 137 mg/dL (70-110); POTASSIUM 3.2 mmol/L (3.5-5.1); SODIUM SERUM 139 mmol/L (136-145); UREA NITROGEN, BLOOD 22 mg/dL (7-18)
[2021-10-05 16:37] LABS: ALANINE AMINOTRANSFERASE 95 U/L (12-78); ALBUMIN 2.9 g/dL (3.4-5.0); ALKALINE PHOSPHATASE 66 U/L (46-116); ASPARTATE AMINOTRANSFERASE 79 U/L (15-37); BILIRUBIN,TOTAL 0.9 mg/dL (0.1-1.0); TOTAL PROTEIN, SERUM 6.4 g/dL (6.4-8.2)
[2021-10-05 19:25] VITALS: BP 156/84
[2021-10-05] MEDS: QUEtiapine FUMARATE 100 MG TABLET PO SCH (19:49)
[2021-10-05] MEDS: ONDANSETRON HCL 4 MG TABLET PO PRN (21:17)
[2021-10-05] MEDS ORDERED: POTASSIUM CHLORIDE 20 MEQ ER TABLET PO ONE (21:45)
[2021-10-05] MEDS ORDERED: MAGNESIUM OXIDE 400 MG TABLET PO PRN (22:45)
[2021-10-05] MEDS ORDERED: POTASSIUM CHL 10 MEQ/WATER 50 ML IV PRN (22:45)
[2021-10-05] MEDS ORDERED: MAGNESIUM SULFATE 2 GM/WATER 50 ML IV PRN (22:45)
[2021-10-05] MEDS ORDERED: MAGNESIUM SULFATE 4 GM/WATER 100 ML IV PRN (22:45)
[2021-10-06 01:27] VITALS: BP 109/69
[2021-10-06] MEDS: HYDROCODONE/ACETAMINOPHEN 5-325 MG TABLET PO PRN ×2 (02:01→17:37)
[2021-10-06 05:57] VITALS: BP 114/62
[2021-10-06 08:14] VITALS: BP 129/67
[2021-10-06] MEDS: QUEtiapine FUMARATE 25 MG TABLET PO SCH ×2 (08:25→21:19)
[2021-10-06] MEDS: NIFEdipine 60 MG ER TABLET PO SCH (08:25)
[2021-10-06] MEDS: LABETALOL HCL 200 MG TABLET PO SCH ×2 (08:25→21:19)
[2021-10-06] MEDS: DOCUSATE SODIUM 100 MG CAPSULE PO SCH ×2 (08:25→21:18)
[2021-10-06] MEDS: LISINOPRIL 10 MG TABLET PO SCH (08:26)
[2021-10-06 09:40] LABS: ALBUMIN 2.7 g/dL (3.4-5.0); BILIRUBIN,TOTAL 0.7 mg/dL (0.1-1.0); CALCIUM, TOTAL 8.3 mg/dL (8.8-10.5); CREATININE 1.29 mg/dL (0.60-1.30); MAGNESIUM 1.9 mg/dL (1.80-2.40); POTASSIUM 3.4 mmol/L (3.5-5.1); TOTAL PROTEIN, SERUM 5.8 g/dL (6.4-8.2)
[2021-10-06 12:32] VITALS: BP 92/60
[2021-10-06 16:02] VITALS: BP 111/64
[2021-10-06] MEDS: SUCRALFATE 1 GM/10 ML SUSPENSION UDCUP PO SCH (17:36)
[2021-10-06 18:03] LABS: COVID AG,FIA SOURCE NASAL SWAB
[2021-10-06 19:33] VITALS: BP 105/50
[2021-10-06] MEDS: QUEtiapine FUMARATE 100 MG TABLET PO SCH (21:18)
[2021-10-07] MEDS: SUCRALFATE 1 GM/10 ML SUSPENSION UDCUP PO SCH ×4 (00:35→18:00)
[2021-10-07 07:18] VITALS: BP 123/61
[2021-10-07] MEDS: ACETAMINOPHEN 325 MG TABLET PO PRN (08:12)
[2021-10-07] MEDS: LISINOPRIL 10 MG TABLET PO SCH (09:00)
[2021-10-07] MEDS: NIFEdipine 60 MG ER TABLET PO SCH (09:00)
[2021-10-07] MEDS: LABETALOL HCL 200 MG TABLET PO SCH ×2 (09:00→21:00)
[2021-10-07] MEDS: DOCUSATE SODIUM 100 MG CAPSULE PO SCH ×2 (09:00→22:35)
[2021-10-07] MEDS: QUEtiapine FUMARATE 25 MG TABLET PO SCH ×2 (09:00→21:00)
[2021-10-07] MEDS: LORazepam 2 MG/ML VIAL IM PRN (11:41)
[2021-10-07] MEDS: DiphenhydrAMINE HCL 50 MG/ML VIAL IM PRN (11:42)
[2021-10-07] MEDS: HALOPERIDOL LACTATE 5 MG/ML VIAL IM PRN (11:42)
[2021-10-07 14:36] LABS: BASOPHILS % (AUTO) 0.2 % (0.0-2.0); EOSINOPHILS % (AUTO) 0.9 % (1.0-6.0); HEMATOCRIT 36.5 % (41-53); HEMOGLOBIN 12.9 g/dL (13.5-17.5); LYMPHOCYTES # (AUTO) 1.4 K/uL (1.0-4.8); LYMPHOCYTES % (AUTO) 12.3 % (22.0-44.0); MEAN CORPUSCULAR HEMOGLOBIN 31.6 pg (26.0-34.0); MEAN CORPUSCULAR HGB CONC 35.3 G/dL (31.0-37.0); MEAN CORPUSCULAR VOLUME 90 fL (80-100); MONOCYTES % (AUTO) 8.4 % (2.0-9.0); NEUTROPHILS # (AUTO) 9.2 K/uL (1.8-7.7); NEUTROPHILS % (AUTO) 78.2 % (40.0-70.0); PLATELET COUNT (AUTO) 276 K/uL (150-450); RED BLOOD CELL COUNT(AUTO) 4.08 MIL/uL (4.50-5.90); RED CELL DISTRIBUTION WIDTH 12.6 % (11.5-14.5)
[2021-10-07 15:13] VITALS: BP 117/65
[2021-10-07] MEDS ORDERED: ChlorproMAZINE HCL 50 MG/2 ML AMP IM ONE (18:00)
[2021-10-07 20:35] VITALS: BP 130/84
[2021-10-07] MEDS: QUEtiapine FUMARATE 100 MG TABLET PO SCH (21:00)
[2021-10-07 22:48] VITALS: BP 132/78
[2021-10-07 23:00] VITALS: BP 132/78
[2021-10-08] MEDS: DiphenhydrAMINE HCL 50 MG/ML VIAL IM PRN ×2 (00:54→19:33)
[2021-10-08] MEDS: LORazepam 2 MG/ML VIAL IM PRN ×2 (00:55→19:33)
[2021-10-08] MEDS: HALOPERIDOL LACTATE 5 MG/ML VIAL IM PRN ×2 (00:55→19:34)
[2021-10-08 03:56] VITALS: BP 162/67
[2021-10-08] MEDS: SUCRALFATE 1 GM/10 ML SUSPENSION UDCUP PO SCH ×4 (06:00→18:00)
[2021-10-08 07:47] VITALS: BP 148/90
[2021-10-08] MEDS: DOCUSATE SODIUM 100 MG CAPSULE PO SCH ×3 (09:00→21:00)
[2021-10-08] MEDS: LISINOPRIL 10 MG TABLET PO SCH ×2 (09:00→09:04)
[2021-10-08] MEDS: NIFEdipine 60 MG ER TABLET PO SCH ×2 (09:00→09:03)
[2021-10-08] MEDS: LABETALOL HCL 200 MG TABLET PO SCH ×3 (09:00→21:00)
[2021-10-08] MEDS: QUEtiapine FUMARATE 25 MG TABLET PO SCH ×3 (09:00→21:00)
[2021-10-08] MEDS: POTASSIUM CHLORIDE 20 MEQ ER TABLET PO PRN ×2 (09:08→12:34)
[2021-10-08 11:08] VITALS: BP 146/96
[2021-10-08 15:58] VITALS: BP 151/98
[2021-10-08 20:39] VITALS: BP 165/78
[2021-10-08] MEDS: AMOX TR/POT CLAV 875 MG/125 MG TABLET PO SCH (21:00)
[2021-10-08] MEDS: QUEtiapine FUMARATE 100 MG TABLET PO SCH (21:00)
[2021-10-09 04:18] VITALS: BP 120/96
[2021-10-09] MEDS: SUCRALFATE 1 GM/10 ML SUSPENSION UDCUP PO SCH ×5 (06:00→20:43)
[2021-10-09 08:43] VITALS: BP 148/81
[2021-10-09] MEDS: DOCUSATE SODIUM 100 MG CAPSULE PO SCH ×2 (09:00→20:42)
[2021-10-09] MEDS: QUEtiapine FUMARATE 25 MG TABLET PO SCH ×2 (09:00→20:43)
[2021-10-09] MEDS: LABETALOL HCL 200 MG TABLET PO SCH ×2 (09:00→20:43)
[2021-10-09] MEDS: AMOX TR/POT CLAV 875 MG/125 MG TABLET PO SCH ×2 (09:00→20:42)
[2021-10-09] MEDS: NIFEdipine 60 MG ER TABLET PO SCH (09:00)
[2021-10-09] MEDS: LISINOPRIL 10 MG TABLET PO SCH (09:00)
[2021-10-09 13:50] VITALS: BP 132/64
[2021-10-09 15:21] VITALS: BP 150/84
[2021-10-09] MEDS: LORazepam 2 MG/ML VIAL IM PRN (17:34)
[2021-10-09] MEDS: HALOPERIDOL LACTATE 5 MG/ML VIAL IM PRN (17:34)
[2021-10-09] MEDS: DiphenhydrAMINE HCL 50 MG/ML VIAL IM PRN (17:35)
[2021-10-09] MEDS: QUEtiapine FUMARATE 100 MG TABLET PO SCH (20:42)
[2021-10-09 20:56] VITALS: BP 156/96
[2021-10-10] MEDS: LORazepam 2 MG/ML VIAL IM PRN (02:53)
[2021-10-10] MEDS: DiphenhydrAMINE HCL 50 MG/ML VIAL IM PRN (02:53)
[2021-10-10] MEDS: HALOPERIDOL LACTATE 5 MG/ML VIAL IM PRN (02:53)
[2021-10-10] MEDS: SUCRALFATE 1 GM/10 ML SUSPENSION UDCUP PO SCH ×4 (04:56→20:36)
[2021-10-10 05:05] VITALS: BP 125/110
[2021-10-10 08:30] VITALS: BP 180/90
[2021-10-10] MEDS: DOCUSATE SODIUM 100 MG CAPSULE PO SCH ×2 (09:00→20:36)
[2021-10-10] MEDS: LABETALOL HCL 200 MG TABLET PO SCH ×2 (09:00→20:36)
[2021-10-10] MEDS: LISINOPRIL 10 MG TABLET PO SCH (09:00)
[2021-10-10] MEDS: AMOX TR/POT CLAV 875 MG/125 MG TABLET PO SCH ×2 (09:00→20:36)
[2021-10-10] MEDS: NIFEdipine 60 MG ER TABLET PO SCH (09:00)
[2021-10-10] MEDS: QUEtiapine FUMARATE 25 MG TABLET PO SCH ×2 (09:00→20:36)
[2021-10-10 11:24] VITALS: BP 158/88
[2021-10-10 11:44] LABS: BASOPHILS % (AUTO) 0.2 % (0.0-2.0); EOSINOPHILS % (AUTO) 1.2 % (1.0-6.0); HEMATOCRIT 34.1 % (41-53); HEMOGLOBIN 12.4 g/dL (13.5-17.5); LYMPHOCYTES # (AUTO) 1.6 K/uL (1.0-4.8); LYMPHOCYTES % (AUTO) 15.4 % (22.0-44.0); MEAN CORPUSCULAR HEMOGLOBIN 32.3 pg (26.0-34.0); MEAN CORPUSCULAR HGB CONC 36.4 G/dL (31.0-37.0); MEAN CORPUSCULAR VOLUME 89 fL (80-100); MONOCYTES # (AUTO) 1.1 K/uL (0.1-1.0); MONOCYTES % (AUTO) 10.3 % (2.0-9.0); NEUTROPHILS # (AUTO) 7.8 K/uL (1.8-7.7); NEUTROPHILS % (AUTO) 72.9 % (40.0-70.0); PLATELET COUNT (AUTO) 250 K/uL (150-450); RED BLOOD CELL COUNT(AUTO) 3.84 MIL/uL (4.50-5.90); RED CELL DISTRIBUTION WIDTH 12.6 % (11.5-14.5)
[2021-10-10 12:06] LABS: ALANINE AMINOTRANSFERASE 70 U/L (12-78); ALBUMIN 2.6 g/dL (3.4-5.0); ALKALINE PHOSPHATASE 50 U/L (46-116); ANION GAP 10 mmol/L (8-16); ASPARTATE AMINOTRANSFERASE 61 U/L (15-37); BILIRUBIN,TOTAL 0.7 mg/dL (0.1-1.0); CALCIUM, TOTAL 8.2 mg/dL (8.8-10.5); CARBON DIOXIDE 26 mmol/L (22-29); CHLORIDE 103 mmol/L (98-107); CREATININE 0.83 mg/dL (0.60-1.30); GLOMERULAR FILTR. RATE CALC > 60 mL/min (>60); GLUCOSE,RANDOM 111 mg/dL (70-110); POTASSIUM 3.1 mmol/L (3.5-5.1); SODIUM SERUM 139 mmol/L (136-145); TOTAL PROTEIN, SERUM 5.8 g/dL (6.4-8.2); UREA NITROGEN, BLOOD 16 mg/dL (7-18)
[2021-10-10] MEDS: CloNIDine 0.3 MG/24 HOUR PATCH TD SCH (13:07)
[2021-10-10] MEDS ORDERED: ChlorproMAZINE HCL 50 MG/2 ML AMP IM PRN (15:30)
[2021-10-10 15:46] VITALS: BP 152/80
[2021-10-10] MEDS: ChlorproMAZINE HCL 50 MG/2 ML AMP IM PRN (16:54)
[2021-10-10] MEDS: QUEtiapine FUMARATE 100 MG TABLET PO SCH (20:36)
[2021-10-10 21:14] VITALS: BP 113/75
[2021-10-11 04:17] VITALS: BP 118/63
[2021-10-11] MEDS: ChlorproMAZINE HCL 50 MG/2 ML AMP IM PRN (05:27)
[2021-10-11] MEDS: SUCRALFATE 1 GM/10 ML SUSPENSION UDCUP PO SCH ×3 (05:33→18:00)
[2021-10-11 07:00] VITALS: BP 107/61
[2021-10-11] MEDS: DOCUSATE SODIUM 100 MG CAPSULE PO SCH ×2 (09:00→20:46)
[2021-10-11] MEDS: NIFEdipine 60 MG ER TABLET PO SCH (09:00)
[2021-10-11] MEDS: LABETALOL HCL 200 MG TABLET PO SCH ×2 (09:00→20:49)
[2021-10-11] MEDS: QUEtiapine FUMARATE 25 MG TABLET PO SCH ×2 (09:00→20:47)
[2021-10-11] MEDS: LISINOPRIL 10 MG TABLET PO SCH (09:00)
[2021-10-11] MEDS: POTASSIUM CHLORIDE 20 MEQ ER TABLET PO PRN (10:19)
[2021-10-11] MEDS: AMOX TR/POT CLAV 875 MG/125 MG TABLET PO SCH ×2 (10:20→20:46)
[2021-10-11 11:36] VITALS: BP 118/63
[2021-10-11 15:57] VITALS: BP 119/67
[2021-10-11] MEDS: ACETAMINOPHEN 325 MG TABLET PO PRN (18:16)
[2021-10-11] MEDS: QUEtiapine FUMARATE 100 MG TABLET PO SCH (20:47)
[2021-10-11 20:51] VITALS: BP 117/61
[2021-10-11] MEDS: TEMAZEPAM 15 MG CAPSULE PO PRN (21:39)
[2021-10-11 23:36] VITALS: BP 132/81
[2021-10-12] MEDS: HYDROCODONE/ACETAMINOPHEN 5-325 MG TABLET PO PRN (00:30)
[2021-10-12] MEDS: LORazepam 2 MG/ML VIAL IM PRN ×2 (01:22→16:42)
[2021-10-12 03:41] VITALS: BP 134/76
[2021-10-12] MEDS: SUCRALFATE 1 GM/10 ML SUSPENSION UDCUP PO SCH ×4 (06:00→18:00)
[2021-10-12] MEDS ORDERED: IOHEXOL 350 MG/ML 100 ML VIAL ONE (07:17)
[2021-10-12] MEDS ORDERED: SODIUM CHLORIDE 0.9% 100 ML ONE (07:17)
[2021-10-12] MEDS: AMOX TR/POT CLAV 875 MG/125 MG TABLET PO SCH ×2 (08:27→23:00)
[2021-10-12] MEDS: DOCUSATE SODIUM 100 MG CAPSULE PO SCH ×2 (08:32→21:27)
[2021-10-12] MEDS: QUEtiapine FUMARATE 25 MG TABLET PO SCH ×2 (08:33→21:00)
[2021-10-12] MEDS: NIFEdipine 60 MG ER TABLET PO SCH (08:37)
[2021-10-12] MEDS: LISINOPRIL 10 MG TABLET PO SCH (08:37)
[2021-10-12] MEDS: LABETALOL HCL 200 MG TABLET PO SCH ×2 (08:37→21:27)
[2021-10-12 09:35] VITALS: BP 134/87
[2021-10-12] MEDS ORDERED: HEPARIN SODIUM,PORCINE 5,000 UNITS/ML VIAL IVP PRN ×2 (11:00)
[2021-10-12] MEDS ORDERED: HEPARIN SODIUM 25000 UNITS/D5W 250 ML IV PRN (11:00)
[2021-10-12 12:13] LABS: BASOPHILS % (AUTO) 1.5 % (0.0-2.0); EOSINOPHILS % (AUTO) 1.8 % (1.0-6.0); HEMATOCRIT 34.5 % (41-53); LYMPHOCYTES # (AUTO) 1.9 K/uL (1.0-4.8); LYMPHOCYTES % (AUTO) 26.5 % (22.0-44.0); MEAN CORPUSCULAR HEMOGLOBIN 32.1 pg (26.0-34.0); MEAN CORPUSCULAR HGB CONC 34.9 G/dL (31.0-37.0); MEAN CORPUSCULAR VOLUME 92 fL (80-100); MONOCYTES # (AUTO) 0.7 K/uL (0.1-1.0); MONOCYTES % (AUTO) 10.2 % (2.0-9.0); NEUTROPHILS # (AUTO) 4.4 K/uL (1.8-7.7); PLATELET COUNT (AUTO) 201 K/uL (150-450); RED BLOOD CELL COUNT(AUTO) 3.75 MIL/uL (4.50-5.90)
[2021-10-12 14:33] VITALS: BP 141/73
[2021-10-12 14:37] LABS: INR 1.1 (0.9-1.1); PROTHROMBIN TIME 11.5 SEC (9.4-11.6)
[2021-10-12] MEDS: DiphenhydrAMINE HCL 50 MG/ML VIAL IM PRN (16:42)
[2021-10-12] MEDS: HALOPERIDOL LACTATE 5 MG/ML VIAL IM PRN (16:43)
[2021-10-12 19:38] VITALS: BP 134/76
[2021-10-12] MEDS: QUEtiapine FUMARATE 100 MG TABLET PO SCH (21:00)
[2021-10-12 21:11] LABS: INR 1.1 (0.9-1.1); PROTHROMBIN TIME 11.7 SEC (9.4-11.6)
[2021-10-12 23:00] VITALS: BP 134/76
[2021-10-13 05:43] VITALS: BP 110/77
[2021-10-13] MEDS: LORazepam 2 MG/ML VIAL IM PRN ×2 (05:56→15:31)
[2021-10-13] MEDS: DiphenhydrAMINE HCL 50 MG/ML VIAL IM PRN (05:57)
[2021-10-13] MEDS: HALOPERIDOL LACTATE 5 MG/ML VIAL IM PRN (05:58)
[2021-10-13] MEDS: SUCRALFATE 1 GM/10 ML SUSPENSION UDCUP PO SCH ×5 (06:00→21:16)
[2021-10-13] MEDS: QUEtiapine FUMARATE 25 MG TABLET PO SCH ×2 (09:00→21:00)
[2021-10-13] MEDS: LISINOPRIL 10 MG TABLET PO SCH (09:00)
[2021-10-13] MEDS: DOCUSATE SODIUM 100 MG CAPSULE PO SCH ×2 (09:00→21:00)
[2021-10-13] MEDS: LABETALOL HCL 200 MG TABLET PO SCH ×2 (09:00→21:00)
[2021-10-13] MEDS: NIFEdipine 60 MG ER TABLET PO SCH (09:00)
[2021-10-13] MEDS: AMOX TR/POT CLAV 875 MG/125 MG TABLET PO SCH ×2 (09:00→21:00)
[2021-10-13] MEDS: APIXABAN 5 MG TABLET PO SCH ×2 (09:00→15:32)
[2021-10-13 15:45] VITALS: BP 103/47
[2021-10-13 18:39] VITALS: BP 110/65
[2021-10-13 19:17] VITALS: BP 117/72
[2021-10-13] MEDS: QUEtiapine FUMARATE 100 MG TABLET PO SCH (21:00)
[2021-10-14] MEDS: HALOPERIDOL LACTATE 5 MG/ML VIAL IM PRN (02:51)
[2021-10-14] MEDS: LORazepam 2 MG/ML VIAL IM PRN (02:52)
[2021-10-14] MEDS: DiphenhydrAMINE HCL 50 MG/ML VIAL IM PRN (02:52)
[2021-10-14 04:23] VITALS: BP 114/86
[2021-10-14] MEDS: SUCRALFATE 1 GM/10 ML SUSPENSION UDCUP PO SCH ×2 (06:00→10:25)
[2021-10-14 06:51] LABS: BASOPHILS % (AUTO) 0.2 % (0.0-2.0); HEMATOCRIT 33.5 % (41-53); LYMPHOCYTES # (AUTO) 1.3 K/uL (1.0-4.8); LYMPHOCYTES % (AUTO) 15.7 % (22.0-44.0); MEAN CORPUSCULAR HEMOGLOBIN 32.3 pg (26.0-34.0); MEAN CORPUSCULAR HGB CONC 35.8 G/dL (31.0-37.0); MEAN CORPUSCULAR VOLUME 90 fL (80-100); MONOCYTES # (AUTO) 0.6 K/uL (0.1-1.0); NEUTROPHILS % (AUTO) 75.1 % (40.0-70.0); PLATELET COUNT (AUTO) 269 K/uL (150-450); RED BLOOD CELL COUNT(AUTO) 3.71 MIL/uL (4.50-5.90); RED CELL DISTRIBUTION WIDTH 12.5 % (11.5-14.5)
[2021-10-14] MEDS: NIFEdipine 60 MG ER TABLET PO SCH (10:26)
[2021-10-14] MEDS: AMOX TR/POT CLAV 875 MG/125 MG TABLET PO SCH ×2 (10:26→21:00)
[2021-10-14] MEDS: DOCUSATE SODIUM 100 MG CAPSULE PO SCH ×2 (10:26→21:00)
[2021-10-14] MEDS: LISINOPRIL 10 MG TABLET PO SCH (10:26)
[2021-10-14] MEDS: APIXABAN 5 MG TABLET PO SCH ×2 (10:26→21:00)
[2021-10-14] MEDS: QUEtiapine FUMARATE 25 MG TABLET PO SCH ×2 (10:26→21:00)
[2021-10-14] MEDS: LABETALOL HCL 200 MG TABLET PO SCH ×2 (10:26→21:00)
[2021-10-14 10:35] VITALS: BP 129/78
[2021-10-14 21:00] VITALS: BP 105/53
[2021-10-14] MEDS: QUEtiapine FUMARATE 100 MG TABLET PO SCH (21:00)
[2021-10-15] MEDS: SUCRALFATE 1 GM/10 ML SUSPENSION UDCUP PO SCH ×6 (00:30→23:44)
[2021-10-15] MEDS: LORazepam 2 MG/ML VIAL IM PRN (03:40)
[2021-10-15] MEDS: DiphenhydrAMINE HCL 50 MG/ML VIAL IM PRN (03:40)
[2021-10-15] MEDS: HALOPERIDOL LACTATE 5 MG/ML VIAL IM PRN (03:52)
[2021-10-15] MEDS: QUEtiapine FUMARATE 25 MG TABLET PO SCH ×2 (09:00→21:00)
[2021-10-15] MEDS: DOCUSATE SODIUM 100 MG CAPSULE PO SCH ×2 (09:00→21:00)
[2021-10-15] MEDS: APIXABAN 5 MG TABLET PO SCH ×2 (09:00→21:00)
[2021-10-15] MEDS: AMOX TR/POT CLAV 875 MG/125 MG TABLET PO SCH ×2 (09:00→21:00)
[2021-10-15] MEDS: LABETALOL HCL 200 MG TABLET PO SCH ×2 (09:00→21:00)
[2021-10-15] MEDS: NIFEdipine 60 MG ER TABLET PO SCH (09:00)
[2021-10-15] MEDS: LISINOPRIL 10 MG TABLET PO SCH (09:00)
[2021-10-15 12:47] VITALS: BP 130/71
[2021-10-15] MEDS: QUEtiapine FUMARATE 100 MG TABLET PO SCH (21:00)
[2021-10-15 23:00] VITALS: BP 115/80
[2021-10-16] MEDS: TEMAZEPAM 15 MG CAPSULE PO PRN (02:22)
[2021-10-16] MEDS: LORazepam 2 MG/ML VIAL IM PRN (02:43)
[2021-10-16] MEDS: HALOPERIDOL LACTATE 5 MG/ML VIAL IM PRN (02:43)
[2021-10-16] MEDS: DiphenhydrAMINE HCL 50 MG/ML VIAL IM PRN (02:43)
[2021-10-16] MEDS: SUCRALFATE 1 GM/10 ML SUSPENSION UDCUP PO SCH ×3 (06:00→17:52)
[2021-10-16] MEDS: LABETALOL HCL 200 MG TABLET PO SCH ×2 (08:40→21:00)
[2021-10-16] MEDS: AMOX TR/POT CLAV 875 MG/125 MG TABLET PO SCH ×2 (08:40→21:53)
[2021-10-16] MEDS: NIFEdipine 60 MG ER TABLET PO SCH (08:40)
[2021-10-16] MEDS: DOCUSATE SODIUM 100 MG CAPSULE PO SCH ×2 (08:40→21:53)
[2021-10-16] MEDS: LISINOPRIL 10 MG TABLET PO SCH (08:42)
[2021-10-16] MEDS: QUEtiapine FUMARATE 25 MG TABLET PO SCH ×2 (08:43→21:54)
[2021-10-16] MEDS: APIXABAN 5 MG TABLET PO SCH ×2 (08:49→21:55)
[2021-10-16 16:01] VITALS: BP 104/60
[2021-10-16 20:26] VITALS: BP 105/72
[2021-10-16] MEDS: QUEtiapine FUMARATE 100 MG TABLET PO SCH (21:54)
[2021-10-17] MEDS: SUCRALFATE 1 GM/10 ML SUSPENSION UDCUP PO SCH ×4 (00:35→18:26)
[2021-10-17 03:58] VITALS: BP 112/68
[2021-10-17 08:37] VITALS: BP 122/65
[2021-10-17] MEDS: NIFEdipine 60 MG ER TABLET PO SCH (09:46)
[2021-10-17] MEDS: LABETALOL HCL 200 MG TABLET PO SCH ×2 (09:46→20:57)
[2021-10-17] MEDS: AMOX TR/POT CLAV 875 MG/125 MG TABLET PO SCH ×2 (09:46→20:57)
[2021-10-17] MEDS: LISINOPRIL 10 MG TABLET PO SCH (09:46)
[2021-10-17] MEDS: DOCUSATE SODIUM 100 MG CAPSULE PO SCH ×2 (09:47→20:57)
[2021-10-17] MEDS: APIXABAN 5 MG TABLET PO SCH ×2 (09:47→20:56)
[2021-10-17] MEDS: CloNIDine 0.3 MG/24 HOUR PATCH TD SCH (09:48)
[2021-10-17] MEDS: QUEtiapine FUMARATE 25 MG TABLET PO SCH ×2 (09:54→20:57)
[2021-10-17 16:11] VITALS: BP 95/57
[2021-10-17 20:14] VITALS: BP 116/57
[2021-10-17] MEDS: QUEtiapine FUMARATE 100 MG TABLET PO SCH (20:57)
[2021-10-18 05:47] VITALS: BP 150/69
[2021-10-18 07:50] VITALS: BP 138/89
[2021-10-18] MEDS: SUCRALFATE 1 GM/10 ML SUSPENSION UDCUP PO SCH ×5 (08:45→20:21)
[2021-10-18] MEDS: NIFEdipine 60 MG ER TABLET PO SCH (08:45)
[2021-10-18] MEDS: AMOX TR/POT CLAV 875 MG/125 MG TABLET PO SCH ×2 (08:45→20:21)
[2021-10-18] MEDS: LISINOPRIL 10 MG TABLET PO SCH (08:45)
[2021-10-18] MEDS: LABETALOL HCL 200 MG TABLET PO SCH ×2 (08:45→20:21)
[2021-10-18] MEDS: DOCUSATE SODIUM 100 MG CAPSULE PO SCH ×2 (08:45→20:20)
[2021-10-18] MEDS: QUEtiapine FUMARATE 25 MG TABLET PO SCH ×2 (08:46→20:20)
[2021-10-18] MEDS: APIXABAN 5 MG TABLET PO SCH ×2 (08:46→20:21)
[2021-10-18 16:21] VITALS: BP 136/85
[2021-10-18] MEDS: TEMAZEPAM 15 MG CAPSULE PO PRN (20:19)
[2021-10-18] MEDS: QUEtiapine FUMARATE 100 MG TABLET PO SCH (20:20)
[2021-10-18 21:06] VITALS: BP 132/81
[2021-10-18] MEDS: LORazepam 2 MG/ML VIAL IM PRN (21:12)
[2021-10-19] MEDS: DiphenhydrAMINE HCL 50 MG/ML VIAL IM PRN (00:46)
[2021-10-19] MEDS: HALOPERIDOL LACTATE 5 MG/ML VIAL IM PRN (00:46)
[2021-10-19] MEDS: SUCRALFATE 1 GM/10 ML SUSPENSION UDCUP PO SCH ×4 (05:36→23:24)
[2021-10-19] MEDS: QUEtiapine FUMARATE 25 MG TABLET PO SCH ×2 (09:00→19:44)
[2021-10-19] MEDS: LISINOPRIL 10 MG TABLET PO SCH (09:00)
[2021-10-19] MEDS: NIFEdipine 60 MG ER TABLET PO SCH (09:00)
[2021-10-19] MEDS: LABETALOL HCL 200 MG TABLET PO SCH ×2 (09:00→19:43)
[2021-10-19] MEDS: APIXABAN 5 MG TABLET PO SCH ×2 (09:45→19:43)
[2021-10-19] MEDS: AMOX TR/POT CLAV 875 MG/125 MG TABLET PO SCH ×2 (09:45→19:43)
[2021-10-19] MEDS: DOCUSATE SODIUM 100 MG CAPSULE PO SCH ×2 (09:45→19:44)
[2021-10-19 09:50] VITALS: BP 98/46
[2021-10-19 12:03] LABS: BASOPHILS % (AUTO) 1.8 % (0.0-2.0); EOSINOPHILS % (AUTO) 2.4 % (1.0-6.0); HEMATOCRIT 32.2 % (41-53); HEMOGLOBIN 11.5 g/dL (13.5-17.5); LYMPHOCYTES # (AUTO) 1.7 K/uL (1.0-4.8); LYMPHOCYTES % (AUTO) 25.3 % (22.0-44.0); MEAN CORPUSCULAR HEMOGLOBIN 32.6 pg (26.0-34.0); MEAN CORPUSCULAR HGB CONC 35.6 G/dL (31.0-37.0); MEAN CORPUSCULAR VOLUME 92 fL (80-100); MONOCYTES # (AUTO) 0.5 K/uL (0.1-1.0); MONOCYTES % (AUTO) 7.9 % (2.0-9.0); NEUTROPHILS # (AUTO) 4.2 K/uL (1.8-7.7); NEUTROPHILS % (AUTO) 62.6 % (40.0-70.0); PLATELET COUNT (AUTO) 288 K/uL (150-450); RED BLOOD CELL COUNT(AUTO) 3.52 MIL/uL (4.50-5.90); RED CELL DISTRIBUTION WIDTH 12.8 % (11.5-14.5)
[2021-10-19 12:11] LABS: ANION GAP 8 mmol/L (8-16); CALCIUM, TOTAL 8.6 mg/dL (8.8-10.5); CARBON DIOXIDE 29 mmol/L (22-29); CHLORIDE 107 mmol/L (98-107); CREATININE 0.87 mg/dL (0.60-1.30); GLOMERULAR FILTR. RATE CALC > 60 mL/min (>60); GLUCOSE,RANDOM 115 mg/dL (70-110); POTASSIUM 3.8 mmol/L (3.5-5.1); SODIUM SERUM 144 mmol/L (136-145); UREA NITROGEN, BLOOD 15 mg/dL (7-18)
[2021-10-19 12:19] LABS: ALANINE AMINOTRANSFERASE 42 U/L (12-78); ALBUMIN 2.5 g/dL (3.4-5.0); ALKALINE PHOSPHATASE 49 U/L (46-116); ASPARTATE AMINOTRANSFERASE 38 U/L (15-37); BILIRUBIN,TOTAL 0.4 mg/dL (0.1-1.0); TOTAL PROTEIN, SERUM 5.6 g/dL (6.4-8.2)
[2021-10-19 19:05] VITALS: BP 147/89
[2021-10-19] MEDS: QUEtiapine FUMARATE 100 MG TABLET PO SCH (19:43)
[2021-10-19] MEDS: TEMAZEPAM 15 MG CAPSULE PO PRN (19:55)
[2021-10-20] MEDS: HALOPERIDOL LACTATE 5 MG/ML VIAL IM PRN (02:16)
[2021-10-20] MEDS: DiphenhydrAMINE HCL 50 MG/ML VIAL IM PRN (02:16)
[2021-10-20] MEDS: LORazepam 2 MG/ML VIAL IM PRN (02:16)
[2021-10-20 04:10] VITALS: BP 136/87
[2021-10-20] MEDS: SUCRALFATE 1 GM/10 ML SUSPENSION UDCUP PO SCH ×3 (06:00→18:02)
[2021-10-20] MEDS: DOCUSATE SODIUM 100 MG CAPSULE PO SCH ×2 (08:19→20:59)
[2021-10-20] MEDS: NIFEdipine 60 MG ER TABLET PO SCH (08:19)
[2021-10-20] MEDS: LABETALOL HCL 200 MG TABLET PO SCH ×2 (08:19→20:52)
[2021-10-20] MEDS: QUEtiapine FUMARATE 25 MG TABLET PO SCH ×2 (08:19→20:59)
[2021-10-20] MEDS: AMOX TR/POT CLAV 875 MG/125 MG TABLET PO SCH ×2 (08:19→20:50)
[2021-10-20] MEDS: LISINOPRIL 10 MG TABLET PO SCH (08:20)
[2021-10-20 08:49] VITALS: BP 124/56
[2021-10-20] MEDS: APIXABAN 5 MG TABLET PO SCH ×2 (10:04→20:52)
[2021-10-20 14:34] VITALS: BP 130/78
[2021-10-20 20:03] VITALS: BP 103/56
[2021-10-20] MEDS: QUEtiapine FUMARATE 100 MG TABLET PO SCH (20:59)
[2021-10-20] MEDS: HYDROCODONE/ACETAMINOPHEN 5-325 MG TABLET PO PRN (23:44)
[2021-10-21 04:39] VITALS: BP 103/60
[2021-10-21] MEDS: SUCRALFATE 1 GM/10 ML SUSPENSION UDCUP PO SCH ×4 (06:34→18:32)
[2021-10-21 08:00] VITALS: BP 116/60
[2021-10-21] MEDS: LISINOPRIL 10 MG TABLET PO SCH (08:50)
[2021-10-21] MEDS: NIFEdipine 60 MG ER TABLET PO SCH (08:50)
[2021-10-21] MEDS: AMOX TR/POT CLAV 875 MG/125 MG TABLET PO SCH ×2 (08:51→21:21)
[2021-10-21] MEDS: DOCUSATE SODIUM 100 MG CAPSULE PO SCH ×2 (08:51→21:00)
[2021-10-21] MEDS: APIXABAN 5 MG TABLET PO SCH ×2 (08:51→21:21)
[2021-10-21] MEDS: QUEtiapine FUMARATE 25 MG TABLET PO SCH ×2 (08:52→21:00)
[2021-10-21] MEDS: LABETALOL HCL 200 MG TABLET PO SCH ×2 (08:53→21:21)
[2021-10-21] MEDS: HYDROCODONE/ACETAMINOPHEN 5-325 MG TABLET PO PRN (18:29)
[2021-10-21 19:35] VITALS: BP 133/76
[2021-10-21] MEDS: QUEtiapine FUMARATE 100 MG TABLET PO SCH (21:00)
[2021-10-22] MEDS: SUCRALFATE 1 GM/10 ML SUSPENSION UDCUP PO SCH ×4 (01:38→19:08)
[2021-10-22] MEDS: HYDROCODONE/ACETAMINOPHEN 5-325 MG TABLET PO PRN ×2 (01:43→22:01)
[2021-10-22] MEDS: TEMAZEPAM 15 MG CAPSULE PO PRN ×3 (02:06→22:01)
[2021-10-22 04:35] VITALS: BP 134/68
[2021-10-22] MEDS: NIFEdipine 60 MG ER TABLET PO SCH (08:18)
[2021-10-22] MEDS: APIXABAN 5 MG TABLET PO SCH ×2 (08:18→21:58)
[2021-10-22] MEDS: LISINOPRIL 10 MG TABLET PO SCH (08:18)
[2021-10-22] MEDS: LABETALOL HCL 200 MG TABLET PO SCH ×2 (08:18→21:59)
[2021-10-22] MEDS: AMOX TR/POT CLAV 875 MG/125 MG TABLET PO SCH ×2 (08:18→23:04)
[2021-10-22] MEDS: QUEtiapine FUMARATE 25 MG TABLET PO SCH ×2 (08:18→21:59)
[2021-10-22] MEDS: DOCUSATE SODIUM 100 MG CAPSULE PO SCH ×2 (08:18→21:58)
[2021-10-22 08:19] VITALS: BP 141/76
[2021-10-22] MEDS ORDERED: ZOLPIDEM TARTRATE 10 MG TABLET PO PRN (17:00)
[2021-10-22] MEDS ORDERED: ZOLPIDEM TARTRATE 10 MG TABLET PO ONE (17:00)
[2021-10-22 19:38] VITALS: BP 110/63
[2021-10-22] MEDS: QUEtiapine FUMARATE 100 MG TABLET PO SCH (21:59)
[2021-10-23 02:45] VITALS: BP 104/53
[2021-10-23] MEDS: SUCRALFATE 1 GM/10 ML SUSPENSION UDCUP PO SCH ×4 (06:00→18:00)
[2021-10-23 08:10] VITALS: BP 122/74
[2021-10-23] MEDS: APIXABAN 5 MG TABLET PO SCH (08:16)
[2021-10-23] MEDS: LISINOPRIL 10 MG TABLET PO SCH (08:16)
[2021-10-23] MEDS: LABETALOL HCL 200 MG TABLET PO SCH (08:16)
[2021-10-23] MEDS: NIFEdipine 60 MG ER TABLET PO SCH (08:16)
[2021-10-23] MEDS: AMOX TR/POT CLAV 875 MG/125 MG TABLET PO SCH (08:16)
[2021-10-23] MEDS: QUEtiapine FUMARATE 25 MG TABLET PO SCH (08:19)
[2021-10-23] MEDS: DOCUSATE SODIUM 100 MG CAPSULE PO SCH (08:19)
[2021-10-23] MEDS ORDERED: CLON1PAT14 TD (14:24)
[2021-10-23] MEDS ORDERED: APIX5TAB PO (14:24)
[2021-10-23] MEDS ORDERED: NIFE-39 PO (14:25)
[2021-10-23] MEDS ORDERED: DOCU-270 PO (14:25)
[2021-10-23] MEDS ORDERED: NIFE-40 PO (14:27)
[2021-10-23] MEDS ORDERED: QUET25TA PO (14:28)
[2021-10-23] MEDS ORDERED: QUET100T PO (14:28)
[2021-10-23] MEDS ORDERED: SUCR1ORA15 PO (14:29)
[2021-10-23] MEDS ORDERED: ACET-2247 PO (14:29)
[2021-10-23] MEDS ORDERED: AUD NEB (14:31)
[2021-10-23] MEDS ORDERED: NIFE60TA81 PO (14:31)
[2021-10-23] MEDS ORDERED: BISA10SU11 PR (14:32)
[2021-10-23] MEDS ORDERED: CALC260T PO (14:33)
[2021-10-23] MEDS ORDERED: IPRNEB IH (14:34)
[2021-10-23] MEDS ORDERED: MOM30 PO (14:35)
[2021-10-23] MEDS ORDERED: MAGN400T7 PO (14:36)
[2021-10-23] MEDS ORDERED: TEMA15CA PO (14:37)
[2021-10-23 15:29] LABS: COVID AG,FIA SOURCE NASAL SWAB
[2021-10-23 15:48] VITALS: BP 125/77
[2021-10-23 16:08] VITALS: BP 107/66
[2021-10-23 19:25] VITALS: BP 110/64
== END 2021-10-23 20:59 | DRG 44 ==
LOC: EMS 22:39 → ICUN 09-02 09:58 → 5S 09-03 19:10 → 6N 09-06 17:40 → 6S 10-21 11:13
PROVIDERS: ADMIT Hospitalist; ATTEND Hospitalist
DX: I62.9 Nontraumatic intracranial hemorrhage, unspecified (principal); I26.99 Other pulmonary embolism without acute cor pulmonale; G93.40 Encephalopathy, unspecified; N17.9 Acute kidney failure, unspecified; R65.10 Systemic inflammatory response syndrome (SIRS) of non-infectious origin without acute organ dysfunction; D72.829 Elevated white blood cell count, unspecified; I10 Essential (primary) hypertension; G89.29 Other chronic pain; F15.10 Other stimulant abuse, uncomplicated; F99 Mental disorder, not otherwise specified; G31.84 Mild cognitive impairment of uncertain or unknown etiology; F41.9 Anxiety disorder, unspecified; R79.89 Other specified abnormal findings of blood chemistry; M54.9 Dorsalgia, unspecified; G47.00 Insomnia, unspecified; Z20.822 Contact with and (suspected) exposure to COVID-19; I70.0 Atherosclerosis of aorta; W19.XXXA Unspecified fall, initial encounter; Z99.3 Dependence on wheelchair; Z78.1 Physical restraint status; Y93.89 Activity, other specified; Y92.89 Other specified places as the place of occurrence of the external cause; Y99.8 Other external cause status
CPT/HCPCS: 70450; 70496; 70498; 71045; 71275; 80053; 80061; 81001; 82040; 82962; 83735; 84132; 84484; 85025; 85379; 85610; 85730; 86850; 86900; 86901; 87081; 92526; 92610; 93005; 93971; 97112; 97162; 97163; 97166; 97167; 97530; 97535; 99291; C9113; G0378; G0480; J0360; J1200; J1630; J1644; J2060; J2270; J2405; J2765; J3230; J3490; J7050; Q0162; Q9967; 36415-L1; 36415-TC

== ENCOUNTER 2022-03-06 20:23 | Emergency (ER) | payer MEDICAID ==
[~2022-03-06] VITALS: Ht 180.3 cm; Wt 96.2 kg
[~2022-03-06 20:23] MED LIST: ACET-2247 PO; APIX5TAB PO; AUD NEB; BISA10SU11 PR; CALC260T PO; CLON1PAT14 TD; DOCU-385 PO; IPRNEB IH; MAGN-169 PO; NIFE60TA81 PO; QUET100T PO; QUET25TA PO; SUCR1ORA15 PO; TEMA15CA PO
[2022-03-06] MEDS ORDERED: LOSA-30 PO (21:14)
[2022-03-06] MEDS ORDERED: ATEN-73 PO (21:14)
[2022-03-06 23:09] LABS: BASOPHILS % (AUTO) 0.4 % (0.0-2.0); HEMATOCRIT 39.3 % (41-53); LYMPHOCYTES # (AUTO) 2.1 K/uL (1.0-4.8); LYMPHOCYTES % (AUTO) 28.2 % (22.0-44.0); MEAN CORPUSCULAR HEMOGLOBIN 31.3 pg (26.0-34.0); MEAN CORPUSCULAR HGB CONC 35.7 G/dL (31.0-37.0); MEAN CORPUSCULAR VOLUME 88 fL (80-100); MONOCYTES # (AUTO) 0.5 K/uL (0.1-1.0); MONOCYTES % (AUTO) 7.2 % (2.0-9.0); NEUTROPHILS # (AUTO) 4.7 K/uL (1.8-7.7); NEUTROPHILS % (AUTO) 62.2 % (40.0-70.0); PLATELET COUNT (AUTO) 146 K/uL (150-450); RED BLOOD CELL COUNT(AUTO) 4.48 MIL/uL (4.50-5.90); RED CELL DISTRIBUTION WIDTH 13.9 % (11.5-14.5)
[2022-03-06] MEDS ORDERED: HydrALAZINE HCL 10 MG TABLET PO ONE (23:15)
[2022-03-06 23:19] LABS: ANION GAP 6 mmol/L (8-16); CALCIUM, TOTAL 8.8 mg/dL (8.8-10.5); CARBON DIOXIDE 28 mmol/L (22-29); CHLORIDE 107 mmol/L (98-107); CREATININE 1.01 mg/dL (0.60-1.30); GLUCOSE,RANDOM 93 mg/dL (70-110); POTASSIUM 3.6 mmol/L (3.5-5.1); SODIUM SERUM 141 mmol/L (136-145); UREA NITROGEN, BLOOD 16 mg/dL (7-18)
[2022-03-06 23:27] LABS: GLOMERULAR FILTR. RATE CALC > 60 mL/min (>60)
[2022-03-06 23:29] LABS: INR 1.1 (0.9-1.1); PROTHROMBIN TIME 11.3 SEC (9.4-11.6)
[2022-03-06 23:30] LABS: APPEARANCE,URINE CLEAR (CLEAR); BILIRUBIN,URINE NEGATIVE (NEGATIVE); GLUCOSE, URINE (UA) NEGATIVE (NEGATIVE); KETONES,URINE NEGATIVE (NEGATIVE); LEUKOCYTE ESTERASE ,URINE NEGATIVE (NEGATIVE); NITRATE,URINE NEGATIVE (NEGATIVE); OCCULT BLOOD,URINE TRACE (NEGATIVE); PROTEIN,URINE NEGATIVE (NEGATIVE); SPECIFIC GRAVITIY, URINE 1.011 (1.003-1.030); UROBILINOGEN,URINE <=1.0 mg/dL (<=1.0)
[2022-03-06 23:43] LABS: B-TYPE NATRIURETIC PEPTIDE 96 pg/mL (0-100)
[2022-03-06 23:44] LABS: ALANINE AMINOTRANSFERASE 52 U/L (12-78); ALBUMIN 3.7 g/dL (3.4-5.0); ALKALINE PHOSPHATASE 69 U/L (46-116); ASPARTATE AMINOTRANSFERASE 31 U/L (15-37); BILIRUBIN,TOTAL 0.5 mg/dL (0.1-1.0); CREATINE KINASE, TOTAL ONLY 104 U/L (39-308); TOTAL PROTEIN, SERUM 7.1 g/dL (6.4-8.2)
[2022-03-06 23:47] LABS: BACTERIA,URINE None Seen /HPF (None Seen); RBC,URINE 0-2 /HPF (0-2); WBC,URINE None Seen /HPF (0-5)
[2022-03-07 00:06] VITALS: BP 187/100
== END 2022-03-07 00:50 | disposition home or self-care (01) ==
LOC: EMS 20:25
DX: I10 Essential (primary) hypertension (principal); F17.210 Nicotine dependence, cigarettes, uncomplicated; Z79.899 Other long term (current) drug therapy
CPT/HCPCS: 71045; 80053; 81001; 81003; 82550; 83880; 84484; 85025; 85610; 85730; 93005; 99285; 36415-L1; 36415-TC